=== PATIENT | female | born 1985 | race Caucasian/White ===

== ENCOUNTER 2023-08-16 21:05 | Emergency (ER) | payer SELFPAY ==
[~2023-08-16] VITALS: Ht 149.9 cm; Wt 40.0 kg
[2023-08-16 22:00] VITALS: PULSE 98; RESP 11; TEMP 98.8; O2SAT 97
[2023-08-16 23:44] VITALS: BP 115/72; PULSE 102; RESP 12; O2SAT 96
== END 2023-08-16 23:48 | disposition home or self-care (01) ==
LOC: ER 21:05 → EDBD 21:05 → ER 23:48
DX: T40.2X1A Poisoning by other opioids, accidental (unintentional), initial encounter (principal); Y92.89 Other specified places as the place of occurrence of the external cause